=== PATIENT | female | born 2000 ===

== ENCOUNTER 2018-04-09 19:57 | Emergency (ER) | payer OTHER ==
[2018-04-09 19:57] VITALS: BMI 29.1
[2018-04-09 20:54] VITALS: BP 120/69; PULSE 85; RESP 16; TEMP 98.6; O2SAT 99
--- NOTE | 2018-04-09 22:40 | ED PDOC ---
HPI: Skin/Bite Injury Time Seen by Provider: 04/09/18 21:39 Chief Complaint (Nursing): Abnormal Skin Integrity Chief Complaint (Provider): rash History Per: Patient History/Exam Limitations: no limitations Additional Complaint(s): 17 y/o F with no signficant PMH who presents with rash x 12 days. Pt states that she began having a rash on her left thigh 12 days ago that was mildly pruritic. She has been using anti-itch cream with no improvement. Pt states that it has since progressed to her Right leg and down to her calves. Denies fever, chills, night sweats. Further denies new lotions, creams, perfumes, foods, detergents, medications. Pt does admit to having a sore throat 3 weeks ago that resolved on it's own with development of rash spontaneously about 1 week later. Past Medical History Reviewed: Historical Data, Nursing Documentation, Vital Signs Vital Signs: Last Vital Signs Temp 98.6 F 04/09/18 20:49 Pulse 85 04/09/18 20:49 Resp 16 04/09/18 20:49 BP 120/69 04/09/18 20:49 Pulse Ox 99 04/09/18 20:49 - Medical History PMH: No Chronic Diseases - Family History Family History: States: Unknown Family Hx - Home Medications Home Medications: Ambulatory Orders Medication Instructions Recorded Oseltamivir Cap [Tamiflu] 75 mg PO BID #10 cap 02/18/16 Betamethasone/Propylene Glyc 1 appful TP BID 14 Days cream..g. 04/09/18 [Betamethasone Dp Aug 0.05% Crm] DiphenhydrAMINE [Benadryl] 25 mg PO Q6 PRN 7 Days cap 04/09/18 - Allergies Allergies/Adverse Reactions: Allergies Allergy/AdvReac Type Severity Reaction Status Date / Time No Known Allergies Allergy Verified 02/17/16 22:16 Review of Systems Constitutional: Negative for: Fever, Chills Skin: Positive for: Rash Physical Exam - Reviewed Nursing Documentation Reviewed: Yes Vital Signs Reviewed: Yes - Physical Exam Appears: Positive for: Well Skin: Positive for: Rash (pink urticarial rash on B/L anterior thighs and lower legs with sparing of trunk, face and arms. No drainage or erythema. ) Neurologic/Psych: Positive for: Alert, Oriented - ECG O2 Sat by Pulse Oximetry: 99 Disposition - Clinical Impression Clinical Impression: Rash - Patient ED Disposition Is Patient to be Admitted: No Counseled Patient/Family Regarding: Diagnosis, Need For Followup, Rx Given - Disposition Referrals: Ankush Ramos MD [Family Provider] - Disposition: Routine/Home Disposition Time: 23:48 Condition: STABLE Additional Instructions: Follow up with your primary care doctor or marketing mgr for further evaluation of rash if it persists. Prescriptions: Betamethasone/Propylene Glyc [Betamethasone Dp Aug 0.05% Crm] 1 appful TP BID 14 Days cream..g. DiphenhydrAMINE [Benadryl] 25 mg PO Q6 PRN 7 Days cap PRN Reason: Itching / Pruritus Instructions: Skin Rash (DC), Topical Corticosteroid Medicines Forms: [employer] (Finnish) Print Language: SPANISH
== END 2018-04-09 23:20 | disposition home or self-care (01) ==
LOC: H.ER 19:57
DX: R21 Rash and other nonspecific skin eruption (principal)